=== PATIENT | female | born 1965 | race Caucasian/White ===

== ENCOUNTER 2023-05-10 05:45 | Day surgery (SDC) | payer OTHER ==
[2023-05-10] MEDS: Lactated Ringers 1,000 ML IV SCH (06:25)
[2023-05-10] MEDS: CEFAZOLIN 2 GM-D5W BAG** 2 GM/50 ML ML IV SCH (06:25)
[2023-05-10] MEDS ORDERED: Xylocaine 1% Vial 30 ML PF IJ ONE (06:39)
[2023-05-10] MEDS ORDERED: Marcaine Mpf 0.5% Vial 30 Ml ONE (06:39)
[2023-05-10 06:45] VITALS: RESP 16
[2023-05-10] MEDS ORDERED: DIPRIVAN 200 MG/20 ML IV ONE (07:23)
[2023-05-10] MEDS ORDERED: SUBLIMAZE 100 MCG/2 ML ONE ×2 (07:25→08:32)
[2023-05-10] MEDS ORDERED: Versed 2 MG/2 ML Injection ONE (07:25)
[2023-05-10] MEDS ORDERED: Transderm Scop 1.5MG Patch ONE (07:29)
[2023-05-10] MEDS ORDERED: TORAdol 30 mg Injection ONE (08:18)
--- NOTE | 2023-05-10 09:09 | XRAY ---
Indication: Bone biopsy right third toe. Intraoperative fluoroscopy provided for 4 seconds. 3 digital spot images submitted for interpretation demonstrates needle tip projecting over 3rd distal phalanx. Correlate with intraoperative findings/report.
[2023-05-10 09:12] VITALS: BP 111/70; PULSE 58; TEMP 97.1; O2SAT 93
--- NOTE | 2023-05-10 11:48 | XRAY ---
4 seconds of fluoroscopy was used in surgery for a bone biopsy right third toe.
--- NOTE | 2023-05-10 13:22 | OP ---
SURGERY DATE/TIME: 05/10/2023 0735 PREOPERATIVE DIAGNOSES: 1) Osteomyelitis third distal phalanx right foot. 2) Delayed union fracture distal phalanx right foot. 3) Osteomyelitis distal phalanx right foot. 4) Complex regional pain syndrome right foot third toe. POSTOPERATIVE DIAGNOSES: 1) Osteomyelitis third distal phalanx right foot. 2) Delayed union fracture distal phalanx right foot. 3) Osteomyelitis distal phalanx right foot. 4) Complex regional pain syndrome right foot third toe. PROCEDURES: Trocar bone biopsy right third digit. SURGEON: Solitario Marte DPM. STORAGE BRINE WORKER: None. ANESTHESIA: Monitored anesthesia care with local block. HEMOSTASIS: Pressure dressing. ESTIMATED BLOOD LOSS: Approximately 2 cc. MATERIALS: 4-0 Nylon. INJECTABLES: 10 cc of 1:1 mixture of 1% lidocaine plain and 0.5% bupivacaine plain injected in a digital block-type fashion. INDICATION FOR SURGERY: Atiya is a very pleasant 57-year-old female who presented to my service after a crush injury due to a can of green beans dropping onto her third toe this resulted in severe amount of pain. She presented to the emergency department where x-rays were taken demonstrating a cortical fracture. There was some bleeding at the time that was not recognized however, during this period of time it did seem to be uncomplicated. Following thereafter, the pain did not subside however did intensify. As a result, she presented to an orthopedic nurse practitioners office for which she was provided a CAM boot. Due to the pain, the patient was unable to tolerate the CAM boot. On successive appointments, the patient did notice that there was some cortical irregularity worsening osteolytic process to the tip of the toe. As a result, of this and the patient's pain there was some concern. Due to the fact that the patient had some criteria that meets the [place] criteria, concern was regarded going forward with a bone biopsy in order to check to see if there is infection without worsening the complex regional pain syndrome. Discussion with pain management provider that Atiya had been set up with, we have decided to proceed with the bone biopsy even if this does make the complex regional pain syndrome worse during the intermittent period of time to insure that the patient can tolerate a sympathetic block safely. As a result, the patient is willing to undergo the procedure today in order to rule out the possibility of infection and proceed from there. The patient understands all risks, complications and benefits of surgical intervention at this time specifically in this patients case the possibility of need for amputation if found to have osteomyelitis and as a result of further traumatic addressing the distal phalanx could possibly worsen the complex regional pain syndrome. The patient understands these risks and wishes to proceed. Plenty of time was allowed for the patient to ask questions which were answered to her apparent satisfaction. It is at this time we decided to proceed. DESCRIPTION OF PROCEDURE AND FINDINGS: The patient is brought into the OR and placed on the OR table in the supine position. At this time, monitored anesthesia care was administered until the patient was adequately sedated. Following this the right lower extremity was prepped and draped in the typical sterile fashion and lowered onto the surgical field. Under fluoroscopic guidance, a 15 blade was utilized to make a 2 mm incision at the tip of the toe. While stabilizing the toe, a Jamshidi needle was introduced into the deficit this under fluoroscopic guidance was malleted into the toe and a core bone biopsy was taken. From that standpoint this was handed off the field and sent for pathologic assessment. Following this, copious amounts of sterile saline were utilized to flush the surgical site. 4-0 Nylon was then utilized to coapt the incision utilizing simple interrupted suture. A dressing consisting of Iodine and a Band-Aid were then applied to the tip of the toe. Following this, the patient was then reversed from anesthesia and returned to the postoperative anesthesia care unit with vital signs stable and vascular status intact. The patient handled the anesthesia as well as the procedure without significant complication. Postoperative orders as indicated in the patient's discharge chart.
== END 2023-05-10 09:27 | disposition home or self-care (01) ==
LOC: SDC 05:45
PROVIDERS: ATTEND Podiatrist Foot & Ankle Surgery
DX: M86.9 Osteomyelitis, unspecified (principal); S92.531G Displaced fracture of distal phalanx of right lesser toe(s), subsequent encounter for fracture with delayed healing; G90.521 Complex regional pain syndrome I of right lower limb
CPT/HCPCS: 20240; 73630; 76000; J0690; J1885; J2001; J2250; J2704; J3010; A9270-GY

== ENCOUNTER 2023-06-01 08:02 | Day surgery (SDC) | payer OTHER ==
[2023-06-01] MEDS ORDERED: LIDOCAINE HCL 1% 50 MG/5 ML VL PF IJ ONE (08:03)
[2023-06-01] MEDS ORDERED: Sensorcaine 0.25% 10 ML IJ ONE (08:03)
[2023-06-01] MEDS ORDERED: DIPRIVAN 200 MG/20 ML IV ONE (10:35)
[2023-06-01] MEDS ORDERED: Lactated Ringers 1,000 ML IV ONE (10:58)
[2023-06-01] MEDS ORDERED: Hydromorphone 1 mg/ml Injection ONE (11:04)
--- NOTE | 2023-06-01 11:58 | XRAY ---
Indication: Right lumbar sympathetic nerve block. Intraoperative fluoroscopy provided for 1 minute 2 seconds. 5 digital spot image submitted for interpretation demonstrates right posterior needle tip projecting just anterior to L2. Small amount of contrast injected for needle tip placement. Correlate with intraoperative findings/report.
--- NOTE | 2023-06-01 12:39 | XRAY ---
One minute and 2 seconds of fluoroscopy was used in surgery for a right lumbar sympathetic nerve block.
== END 2023-06-01 11:45 | disposition home or self-care (01) ==
LOC: SDC-PAIN 08:02
PROVIDERS: ATTEND Psychiatry & Neurology Pain Medicine
DX: G90.529 Complex regional pain syndrome I of unspecified lower limb (principal); E11.9 Type 2 diabetes mellitus without complications
CPT/HCPCS: 64520; 72100; 77002; 77003; 82947; J1170; J2001; J2704; Q9966

== ENCOUNTER 2023-09-27 07:41 | Day surgery (SDC) | payer OTHER ==
[2023-09-27 08:00] VITALS: RESP 18
[2023-09-27] MEDS ORDERED: Lactated Ringers 1,000 ML IV ONE (08:00)
[2023-09-27] MEDS ORDERED: CEFAZOLIN 2 GM/100 ML NaCl 2 GM/100 ML IVPB IV ONE (08:00)
[2023-09-27] MEDS: CEFAZOLIN 2 GM/100 ML NaCl 2 GM/100 ML IVPB IV SCH (08:08)
[2023-09-27] MEDS: Lactated Ringers 1,000 ML IV SCH (08:08)
[2023-09-27] MEDS ORDERED: Transderm Scop 1.5MG Patch ONE (08:10)
[2023-09-27] MEDS: Transderm Scop 1.5MG Patch TOP ONE (08:12)
[2023-09-27 08:23] LABS: Hematocrit 43.9 % (34.1-44.9); Hemoglobin 14.9 g/dL (11.2-15.7); Mean Cell Volume 91.3 fL (79.4-94.8); Mean Corpuscular Hgb Concent. 33.9 g/dL (32.2-35.5); Mean Platelet Volume 8.5 fL (9.4-12.3); Platelet Count 263 x10^3/uL (182-369); Red Blood Count 4.81 x10^6/uL (3.93-5.22); Red Cell Distribution Width 12.7 % (11.7-14.4); White Blood Count 4.6 x10^3/uL (3.98-10.04)
[2023-09-27 08:37] LABS: ALBUMIN 4.2 g/dL (3.5-5.0); ANION GAP 10.3 MEQ/L (5-15); BILIRUBIN,TOTAL 0.7 mg/dL (0.2-1.3); Calcium 10.2 mg/dL (8.4-10.2); Creatinine 1 0.72 mg/dL (0.52-1.04); EST GLOMERULAR FILTRATION RATE 96.9 ML/MIN; Total Protein 7.2 g/dL (6.3-8.2)
[2023-09-27 08:38] LABS: Potassium 4.1 mmol/L (3.5-5.1)
[2023-09-27] MEDS ORDERED: Marcaine Mpf 0.5% Vial 30 Ml ONE (08:51)
[2023-09-27] MEDS ORDERED: XYLOCAINE 1% HCL 20 ML MDV ONE (08:51)
[2023-09-27] MEDS ORDERED: Xylocaine-Mpf 2% 5 Ml Vial ONE (11:49)
[2023-09-27] MEDS ORDERED: BRIDION 200MG/2ML IV ONE (11:49)
[2023-09-27] MEDS ORDERED: Zofran 4 MG/2 ML VIAL ONE (11:49)
[2023-09-27] MEDS ORDERED: DIPRIVAN 200 MG/20 ML IV ONE (11:49)
[2023-09-27] MEDS ORDERED: SUBLIMAZE 100 MCG/2 ML ONE ×2 (11:49→13:19)
[2023-09-27] MEDS ORDERED: TORAdol 30 mg Injection ONE (11:49)
[2023-09-27] MEDS ORDERED: ROCURONIUM BROMIDE IV ONE (11:49)
[2023-09-27] MEDS ORDERED: Decadron 4 MG INJ ONE (11:49)
[2023-09-27] MEDS ORDERED: Propofol 1000 mg/100 ml Bottle 100 ML IV ONE (11:56)
--- NOTE | 2023-09-27 13:14 | XRAY ---
Indication: Right 3rd toe hammertoe correction. Intraoperative fluoroscopy provided for 33 seconds. 19 digital spot images submitted for interpretation ultimately demonstrates single screw traversing 3rd toe. Correlate with operative findings/report.
[2023-09-27] MEDS ORDERED: Hydromorphone 1 mg/ml Injection ONE (13:31)
[2023-09-27 14:20] VITALS: BP 104/68; TEMP 96.7; O2SAT 94
[2023-09-27 14:31] VITALS: PULSE 47
--- NOTE | 2023-09-27 14:38 | XRAY ---
33 seconds of fluoroscopy was used in surgery for a right 3rd toe hammertoe correction.
--- NOTE | 2023-09-29 12:16 | OP ---
SURGERY DATE/TIME: 09/27/2023 [id number] [id number] PREOPERATIVE DIAGNOSES: 1) Right foot distal phalanx fracture nonunion. 2) Hammertoe. 3) Right third toe pain. 4) Difficulty with ambulation. POSTOPERATIVE DIAGNOSES: 1) Right foot distal phalanx fracture nonunion. 2) Hammertoe. 3) Right third toe pain. 4) Difficulty with ambulation. PROCEDURES: 1) Open reduction and internal fixation of distal phalanx fracture, third digit right foot. 2) Hammertoe correction. 3) Calcaneal autograft. 4) Removal of nail avulsion, third digit right foot. SURGEON: Solitario Marte DPM ONLINE MARKETING ANALYST: None. ANESTHESIA: General plus an intraoperative local block consisting of 10 mL of a 1:1 mixture of 1% lidocaine plain and 0.5% bupivacaine plain injected in a digital block to the third digit right foot. HEMOSTASIS: Pressure dressing. ESTIMATED BLOOD LOSS: Approximately 5 mL. MATERIALS: 4-0 Monocryl, 4-0 nylon, one 2.5 x 40 mm VPC screw from [employer]. INJECTABLES: 10 mL of a 1:1 mixture of 1% lidocaine plain injected in a digital block-type fashion and a V block-type fashion for the calcaneal autograft. INDICATIONS: The patient is a very pleasant 57-year-old female who is well known to my service for an odd presentation of an injury. Patient was in her kitchen and handling a can of green beans where she dropped it on the distal aspect of her right great toe. This was treated conservatively without any improvement and she was sent to my service. Patient was having 10/10 pain at that time. Given the injury and the fracture, it did seem to be out of proportion for the given issue patient was having. From that standpoint, the thought was that given patient's pain and being a constant level 10/10 with sharp shooting pains and fitting into the [place] criteria that she did have some form of CRPS as this fracture was healing. She was sent for an assessment with Pain Management who assessed that the patient likely did not have CRPS. However, repeat x-rays did demonstrate that there was continued nonunion. The patient did try with a bone stimulator in order to improve the quality of the bone which was not improved with this modality. At this time, the patient has had a nonunion of the distal tip of the digit. We had confirmed that there are no indications of osteomyelitis with a bone biopsy. At this time, we discussed the options. Given that there is no strong literature that discusses this case, we discussed the potential of treating the fracture fragment as a nonunion and refracturing and packing with calcaneal autograft as well as stabilizing the fracture fragment by repairing the hammertoe. From that standpoint, the patient was amenable to proceeding in order to alleviate the pain. That being said, patient has been made aware of all risks, complications, and benefits of surgical intervention at this time including but not limited to infection, hematoma, seroma, possibility of delayed wound healing, non-wound healing, possibility of activating CRPS, possibility of failure of surgical intervention, possible painful retained hardware, and possible need for further surgical intervention at a later date. There have been absolutely no guarantees provided in regard to the outcome of this surgical intervention. However, there is a fair bit of high likelihood that this will work as it should work on the nonunion historically. From that standpoint, plenty of time was allowed for the patient and her to ask questions which were answered to her apparent satisfaction. At this time, we decided to proceed. DESCRIPTION OF PROCEDURE AND FINDINGS: Patient was brought to the operating room, placed on the operating room table in the supine position. At this time, general anesthesia was administered until the patient was adequately sedated. At this time, a well-padded ankle tourniquet was applied to the right ankle. The right foot was prepped and draped in the typical sterile fashion and lowered onto the surgical field. At this time, a spatula and smoking tobacco packer hand was utilized to elevate the third digit nail off the nail base. This was taken off utilizing a curve hemostat. Following this, a linear incision was made down to the level of the distal interphalangeal joint as well as the proximal interphalangeal joint. The distal phalanx was inspected and utilizing a 0.65 K-wire, the nonunion site was identified and microfractured through in order to stimulate new healing and to remove some of the fibrous tissue in the nonunion. From that standpoint, a rongeur was utilized to clean the site. Calcaneal autograft was harvested under direct fluoroscopic visualization. From that standpoint, the safe zone was identified. A stab incision was made which was carried down utilizing a blunt curve mini. This was fenestrated utilizing a 2 mm drill and then varying sizes of curettes were utilized to harvest approximately 0.25 mL of bone graft. From that standpoint, the graft was put on the back table for later use. At this time, the graft was then packed into the deficit where the fracture was identified. Following this, an 18 mm sagittal saw was utilized to resect out the proximal interphalangeal joints under direct fluoroscopic guidance. The K-wire was then retrograded out of the middle phalanx and into our fracture site. This was then anterograded down the base of the proximal phalanx gaining excellent apposition on lateral and AP views. Following this, a 2.5 x 40 mm variable compression screw was introduced to the distal tip of the toe and the toe was fixated through the fracture site as well as repairing the hammertoe. Following this, copious amounts of sterile saline were utilized to flush the surgical site, 4-0 Monocryl was utilized to coapt the subcutaneous edges and then 4-0 nylon was utilized in a simple interrupted over the nail bed and then a horizontal mattress over the remainder of the digit. Following this, a dressing consisting of Betadine, Adaptic, 4 x 4's, Kerlix, and Luke was applied to the patient's right lower extremity. Patient was then reversed from anesthesia and returned to the postoperative anesthesia care unit with vital signs stable and vascular status intact. The patient handled the anesthesia as well as the procedure without significant complication. Postoperative orders as indicated in the patient's discharge chart.
== END 2023-09-27 14:47 | disposition home or self-care (01) ==
LOC: SDC 07:41
PROVIDERS: ATTEND Podiatrist Foot & Ankle Surgery
DX: S92.534A Nondisplaced fracture of distal phalanx of right lesser toe(s), initial encounter for closed fracture (principal); M20.41 Other hammer toe(s) (acquired), right foot; M79.671 Pain in right foot; R26.2 Difficulty in walking, not elsewhere classified; E66.9 Obesity, unspecified; Z79.899 Other long term (current) drug therapy
CPT/HCPCS: 11730; 20900; 28285; 28525; 36415; 73630; 76000; 80053; 82947; 85027; C1713; C1769; J0690; J1100; J1170; J1885; J2405; J2704; J3010; A9270-GY